=== PATIENT | male | born 1970 | race Caucasian/White ===

== ENCOUNTER 2016-11-22 07:18 | Day surgery (SDC) | payer MEDICAID ==
[~2016-11-22] VITALS: Ht 188 cm
--- NOTE | 2016-11-23 08:23 | OR ---
ADMIT: 11/22/2016 RM/LOC: [facility] MR#: [id number] [address] [address] DINH BILLY [address] [place] [address] Operative/Delivery Room Report SEX: M AGE: 45 : 1970 SURGERY DATE: 11/22/2016 SURGEON: Michael Felder MD EVP OPERATIONS: None. PREPROCEDURE DIAGNOSIS: 1. Lumbar spondylosis. 2. Lumbago. POSTPROCEDURE DIAGNOSIS: 1. Lumbar spondylosis. 2. Lumbago. PROCEDURE PERFORMED: Right L3, L4, L5, and S1 radiofrequency thermocoagulation. INDICATIONS FOR PROCEDURE: The patient is a pleasant gentleman with history of chronic low back pain and comes here for planned lumbar right radiofrequency ablation ANESTHESIA: Local without sedation. ESTIMATED BLOOD LOSS: Zero. COMPLICATIONS: None immediately evident. DESCRIPTION OF THE PROCEDURE: After the patient was seen in the preoperative area, vitals signs were taken. Prior to the procedure, the risks, benefits, and alternative therapies were discussed at length. Patient consent was obtained and updated. The patient was taken to the fluoroscopy suite and placed on the fluoroscopy table in the prone position. Pressure points were padded to comfort, monitors applied, and a timeout performed. ADMIT: 11/22/2016 RM/LOC: [facility] MR#: [id number] [address] [id number] DINH BILLY [address] [place] [address] Operative/Delivery Room Report SEX: M AGE: 45 : 1970 Fluoroscopy was brought in to identify the transverse process of the right- sided L3, L4, L5, and S1. To anesthetize the skin, a spinal cannula was placed near the junction of pedicle and transverse process. Once we obtained appropriate parameters for sensory motor testing, we proceeded with radiofrequency thermocoagulation at each level, which consisted of 80 degrees for 90 seconds. The patient tolerated the procedure well. The patient did not feel any stimulation below his knee. The patient was discharged to post anesthesia care without any immediate complications. PLAN: Discharge instructions were given, followup scheduled. 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 Michael Felder MD/ montez JOB #: [id number] CC: Michael Felder, Attending Physician Berta Scott, Family Physician
== END 2016-11-22 09:08 | disposition home or self-care (01) ==
LOC: SSS 07:18
PROC: 3E0T3TZ Introduction of Destructive Agent into Peripheral Nerves and Plexi, Percutaneous Approach (ICD-10-PCS; principal; 2016-11-22)
PROC: BR16YZZ Fluoroscopy of Lumbar Facet Joint(s) using Other Contrast (ICD-10-PCS; principal; 2016-11-22)
DX: G89.29 Other chronic pain (principal); M47.816 Spondylosis without myelopathy or radiculopathy, lumbar region; F41.9 Anxiety disorder, unspecified; M12.88 Other specific arthropathies, not elsewhere classified, other specified site; Z79.899 Other long term (current) drug therapy